=== PATIENT | female | born 1965 | race American Indian/Alaskan Native ===

== ENCOUNTER 2021-03-07 11:04 | Emergency (ER) | payer OTHER ==
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
[2021-03-07 13:13] VITALS: BP 160/100
== END 2021-03-07 13:11 | disposition home or self-care (01) ==
LOC: ED 11:04
DX: S46.911A Strain of unspecified muscle, fascia and tendon at shoulder and upper arm level, right arm, initial encounter (principal); S39.012A Strain of muscle, fascia and tendon of lower back, initial encounter; E11.8 Type 2 diabetes mellitus with unspecified complications; V79.59XA Passenger on bus injured in collision with other motor vehicles in traffic accident, initial encounter; Y93.89 Activity, other specified; Y92.410 Unspecified street and highway as the place of occurrence of the external cause; Y99.8 Other external cause status
CPT/HCPCS: 72100; 99283